=== PATIENT | female | born 1975 | race Caucasian/White ===

== ENCOUNTER 2019-07-05 18:54 | Emergency (ER) | payer MEDICARE, MEDICAID ==
[~2019-07-05] VITALS: Ht 175.3 cm; Wt 76.4 kg
[2019-07-05] MEDS ORDERED: ONDANSETRON 4MG/2ML VIAL (J2405) IV ONE (19:00)
[2019-07-05] MEDS: MORPHINE 4 MG/ML 1ML VIAL/SYRINGE (J2270) IV PRN ×2 (19:21→20:46)
[2019-07-05] MEDS ORDERED: ISOVUE-370 76% 100ML VIAL (Q9967) As Ordered ONE (20:02)
[2019-07-05 20:05] LABS: EOS # 0.1 10^3/uL (0.0-0.5); EOS % 0.6 % (0.0-3.0); HEMATOCRIT 38.9 % (36.0-47.0); HEMOGLOBIN 12.8 g/dl (12.0-15.5); LYMPH % 11.4 % (24.0-44.0); MEAN CORPUSCULAR HEMOGLOBIN 31.1 pg (27.0-33.0); MEAN CORPUSCULAR HGB CONC 32.9 g/dl (32.0-36.5); MEAN CORPUSCULAR VOLUME 94.6 fl (80.0-96.0); MONO # 0.6 10^3/uL (0.0-0.8); NEUTROPHILS # 7.3 10^3/uL (1.5-8.5); NEUTROPHILS % 80.8 % (36.0-66.0); PLATELET COUNT, AUTOMATED 206 10^3/uL (150-450); RED BLOOD COUNT 4.11 10^6/uL (4.00-5.40)
[2019-07-05 20:06] LABS: VENOUS BASE EXCESS -3.6 (-2.0-2.0); VENOUS HCO3 22.4 MEQ/L (23.0-27.0); VENOUS PARTIAL PRESSURE CO2 43.9 mmHg (38.0-50.0); VENOUS PH 7.326 UNITS (7.330-7.430); VENOUS TOTAL CO2 23.8 MEQ/L (24.0-28.0)
--- NOTE | 2019-07-05 20:13 | REP ---
Clinical: Chest pain . Comparison: None . Findings: The mediastinum and cardiac silhouette are stable and within normal limits for portable technique. The lung king are clear without acute consolidation, effusion, or pneumothorax. Skeletal structures are intact. Impression: No acute cardiopulmonary process appreciated. Electronically Signed by Braeden Black MD 07/05/2019 08:04 P
[2019-07-05 20:17] LABS: INR 1.06; PROTHROMBIN TIME 13.5 SECONDS (11.8-14.0)
[2019-07-05 20:43] LABS: ALT/SGPT 17 U/L (12-78); BILIRUBIN,DIRECT 0.2 MG/DL (0.0-0.2); BILIRUBIN,TOTAL 0.6 MG/DL (0.2-1.0); BLOOD UREA NITROGEN 12 MG/DL (7-18); CALCIUM LEVEL 9.1 MG/DL (8.5-10.1); CARBON DIOXIDE LEVEL 24 MEQ/L (21-32); CHLORIDE LEVEL 106 MEQ/L (98-107); CK-MB VALUE MASS < 1.0 NG/ML (<3.6); CPK CREATINE PHOSPHOKINASE 57 U/L (26-192); CREATININE FOR GFR 0.72 MG/DL (0.55-1.30); GLOMERULAR FILTRATION RATE > 60.0 (>58); GLUCOSE, FASTING 138 MG/DL (70-100); LIPASE 41 U/L (73-393); MB/CK RELATIVE INDEX 1.75 (< OR =4); POTASSIUM SERUM 3.7 MEQ/L (3.5-5.1); SODIUM LEVEL 141 MEQ/L (136-145); TOTAL PROTEIN 6.8 GM/DL (6.4-8.2); TROPONIN I < 0.02 NG/ML (< 0.10)
[2019-07-05] MEDS ORDERED: PIPERACILLIN/TAZOBACTAM SOD 3.375 GM in D5W MINI-BAG PLUS 50 ML IV ONE (21:00)
[2019-07-05] MEDS ORDERED: METOCLOPRAMIDE INJ 10MG/2ML VIAL (J2765) IV ONE (21:00)
[2019-07-05] MEDS ORDERED: VIBE1TAB2 PO (21:01)
[2019-07-05] MEDS ORDERED: GABA800T4 PO (21:01)
[2019-07-05] MEDS ORDERED: ASPI81CH33 PO (21:01)
[2019-07-05] MEDS ORDERED: AMBI10TA PO (21:01)
[2019-07-05] MEDS ORDERED: KEPP10002 PO (21:01)
--- NOTE | 2019-07-05 21:11 | REPVR ---
PROCEDURE INFORMATION: Exam: CT Chest With Contrast Exam date and time: 07/05/2019 8:45 PM Age: 44 years old Clinical indication: Chest pain; Type not specified; Additional info: Chest/abd pain after esophageal dilatation earlier today TECHNIQUE: Imaging protocol: Computed tomography of the chest with intravenous contrast. Radiation optimization: All CT scans at this facility use at least one of these dose optimization techniques: automated exposure control; mA and/or kV adjustment per patient size (includes targeted exams where dose is matched to clinical indication); or iterative reconstruction. Contrast material: ISOVUE 370; Contrast volume: 100 ml; Contrast route: IV; COMPARISON: CR PORTABLE CHEST X-RAY 07/05/2019 7:29 PM FINDINGS: Lungs: Mild bilateral lower lobe atelectasis. Pleural space: Unremarkable. No pneumothorax. No pleural effusion. Heart: Unremarkable. No cardiomegaly. No pericardial effusion. Mediastinum: Gas around the distal esophagus and extension around the IVC and along hepatic veins. There gas extends between the stomach and the liver. Pulmonary arteries: The main pulmonary artery measures 25 mm. Aorta: The ascending thoracic aorta measures 27 mm. Great vessels off aortic arch: Soft tissue surrounding the proximal right subclavian artery with luminal narrowing which may reflect neoplastic encasement or possibly short segment circumferential dissection. Lymph nodes: Unremarkable. No enlarged lymph nodes. Liver: The liver attenuation is 88 Hounsfield units and the spleen is 130 Hounsfield units. Intraperitoneal space: Free air in the abdomen. Bones/joints: Unremarkable. No acute fracture. Soft tissues: Unremarkable. IMPRESSION: 1. Free air in the abdomen consistent with perforated viscus and gas around the distal esophagus at the diaphragmatic hiatus consistent with esophageal perforation. 2. Mild bilateral lower lobe atelectasis. 3. Soft tissue encasing the proximal right subclavian artery with luminal narrowing which may reflect neoplastic encasement or possibly short segment circumferential dissection and is incompletely evaluated. 4. Fatty infiltration of the liver. Electronically signed by: Leandro Viveros On 07/05/2019 21:11:39 PM
[2019-07-05] MEDS: HYDROMORPHONE HCL 0.5 MG/ 0.5 ML SYRINGE (J1170 PER 1) IV PRN ×2 (21:16→22:02)
--- NOTE | 2019-07-05 21:19 | REPVR ---
PROCEDURE INFORMATION: Exam: CT Abdomen And Pelvis With Contrast Exam date and time: 07/05/2019 8:45 PM Age: 44 years old Clinical indication: Abdominal pain; Generalized; Additional info: Chest/abd pain after esophageal dilatation earlier today TECHNIQUE: Imaging protocol: Computed tomography of the abdomen and pelvis with intravenous contrast. Radiation optimization: All CT scans at this facility use at least one of these dose optimization techniques: automated exposure control; mA and/or kV adjustment per patient size (includes targeted exams where dose is matched to clinical indication); or iterative reconstruction. Contrast material: ISOVUE 370; Contrast volume: 100 ml; Contrast route: IV; COMPARISON: No relevant prior studies available. FINDINGS: Lungs: Mild bilateral lower lobe atelectasis. Liver: The liver attenuation is 94 Hounsfield units and the spleen is 139 Hounsfield units. Gallbladder and bile ducts: Normal. No calcified stones. No ductal dilation. Pancreas: Normal. No ductal dilation. Spleen: Normal. No splenomegaly. Adrenals: Normal. No mass. Kidneys and ureters: Normal. No hydronephrosis. Stomach and bowel: Unremarkable. No obstruction. No mucosal thickening. Appendix: There are no changes of appendicitis and probable visualization of a normal appendix. Mild free fluid in the pelvis with a Hounsfield measurement of 8. Intraperitoneal space: There is free air in the abdomen and is greatest around the liver and stomach. Vasculature: Gas around the distal esophagus at the diaphragmatic hiatus with some extension along the IVC and hepatic veins. Slight ectasia of the right common iliac artery measuring 16 mm. Lymph nodes: Unremarkable. No enlarged lymph nodes. Bladder: Unremarkable as visualized. Reproductive: Unremarkable as visualized. Bones/joints: Right hip prosthesis in position with beam hardening artifact. Soft tissues: Ingested metallic linear foreign body in the proximal sigmoid which is perpendicular to the wall and may be imbedded in the wall. No surrounding free air is noted. IMPRESSION: 1. Free air consistent with perforated viscus. There is gas around the distal esophagus and the adjacent abdomen and findings likely reflect distal esophageal perforation. 2. Mild free fluid in the pelvis which is likely reactive and related to the perforation. 3. Linear metallic ingested foreign body in the proximal sigmoid which is perpendicular to the wall it appears imbedded. Definite perforation is not appreciated. 4. Mild bilateral lower lobe atelectasis. 5. Fatty infiltration of the liver. Electronically signed by: Leandro Viveros On 07/05/2019 21:19:19 PM
[2019-07-05] MEDS ORDERED: FLUCONAZOLE 200 MG in IV 1 EA IV ONE (22:00)
[2019-07-05] MEDS ORDERED: ACETAMINOPHEN 650 MG SUPP PR ONE (23:45)
[2019-07-05] MEDS ORDERED: ACETAMINOPHEN *IV* 650 MG in IV 1 EA IV ONE (23:45)
[2019-07-06 00:11] VITALS: BP 100/55
--- NOTE | 2019-07-06 05:36 | ECGEPIP ---
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
== END 2019-07-06 00:13 | disposition short-term general hospital (02) ==
LOC: M ED 18:54
DX: K63.1 Perforation of intestine (nontraumatic) (principal); Z98.84 Bariatric surgery status; R07.9 Chest pain, unspecified
CPT/HCPCS: 71045; 71260; 74177; 80047; 80048; 80076; 82550; 82553; 82803; 83690; 84484; 85025; 85610; 86850; 86900; 86901; 87040; 93005; 93041; 96365; 96366; 96367; 96375; 96376; 99285; J0131; J1170; J2270; J2405; J2543; J2765; Q9967

== ENCOUNTER → 2024-09-03 | Outpatient (REF) | payer MEDICARE, MEDICAID, BC ==
[~2024-09-03] MED LIST: AMBI10TA PO; ASPI81CH33 PO; GABA-1635 PO; KEPP10002 PO; VIBE1TAB2 PO
== END ==
LOC: M SFHCDERM 17:32
PROVIDERS: ATTEND Dermatology
DX: Z48.02 Encounter for removal of sutures (principal)